=== PATIENT | female | born 1955 | race Hispanic/Latino ===

== ENCOUNTER 2019-07-16 14:01 | Emergency (ER) | payer MEDICAID ==
[~2019-07-16 14:01] MED LIST: LISI-617 PO; METF-444 PO; NAPR-1023 PO; POLY17PO29 PO; PROCTOCM PR
[2019-07-16] MEDS ORDERED: ACETAMINOPHEN EXTRA STRENGTH 500 MG TABLET ONE (14:37)
== END 2019-07-16 15:22 | disposition home or self-care (01) ==
LOC: EDH 14:01
DX: S80.02XA Contusion of left knee, initial encounter (principal); S93.601A Unspecified sprain of right foot, initial encounter; E11.9 Type 2 diabetes mellitus without complications; I10 Essential (primary) hypertension; M19.90 Unspecified osteoarthritis, unspecified site; W18.39XA Other fall on same level, initial encounter; Y93.01 Activity, walking, marching and hiking; Y92.481 Parking lot as the place of occurrence of the external cause; Y99.8 Other external cause status
CPT/HCPCS: 73600; 73630